=== PATIENT | male | born 1975 | race Caucasian/White ===

== ENCOUNTER 2019-11-25 15:59 | Emergency (ER) | payer SELFPAY ==
[~2019-11-25] VITALS: Ht 177.8 cm; Wt 69.4 kg
[2019-11-25 16:22] VITALS: Ht 177.8 cm; Wt 69.4 kg
[2019-11-25 17:42] VITALS: BP 114/69
== END 2019-11-25 17:42 | disposition home or self-care (01) ==
LOC: ED 15:59
DX: M54.42 Lumbago with sciatica, left side (principal); J45.909 Unspecified asthma, uncomplicated